=== PATIENT | female | born 1950 | race Caucasian/White ===

== ENCOUNTER 2023-07-20 14:05 | Observation (INO) ==
--- NOTE | 2023-07-20 15:19 | ED.PDOC ---
General ED Provider: Dr. LEANDRA DELATORRE MD Chief Complaint: Nausea/Vomiting Stated Complaint: nausea without vomiting Time Seen by Provider: 07/20/23 14:50 Mode of Arrival: Walk-In Information Source: Patient Exam Limitations: No limitations Primary Care Provider: ENEDELIA GROSSMAN MD Nursing and Triage Documentation Reviewed and Agree: Yes GI Complaint Exam Vomiting/Diarrhea Complaint/Exam Onset/Duration: ~4 days ago Symptoms Are: Still present Episodes of Vomiting over last 24 Hours: 0 Episodes of Diarrhea Over Last 24 Hours: 0 Initial Severity: Mild Current Severity: Moderate Aggravating: Reports None Alleviating: Reports None Associated Signs and Symptoms: Denies Dizziness, Light-headedness, Melena, Hematemesis, Fever, Abdominal pain or Cramping Related History: Denies Similar episode Last Oral Intake: ~1030 Recent Positive Test: No Use of Oral Contraceptives: No Use of Depoprovera: No Non-GI Risk Factors: Reports None Surgical Obstruction Risk Factors: Reports None Related Surgical History: Reports None Abdominal Findings: Present None Kussmaul Respirations Present: No Differential Diagnoses: Cholecystitis, Cholelithiasis, Dehydration, Gastritis, PUD, Viral Gastroenteritis, Bacterial Gastroenteritis, Hepatitis, Pancreatitis and UTI Review of Systems Review Of Systems Constitutional: Reports Malaise, Sweats and Other (myalgias) Respiratory: Reports Cough GI: Reports Nausea; Denies Diarrhea or Vomiting : Reports Burning and Dysuria All Other Systems: Reviewed and Negative [facility] Medical History Biceps muscle tear S46.219A - Strain of muscle, fascia and tendon of other parts of biceps, unspecified arm, initial encounter (ICD-10) Breast cancer C50.919 - Malignant neoplasm of unspecified site of unspecified female breast (ICD-10) Deep vein blood clot of left lower extremity I82.402 - Acute embolism and thrombosis of unspecified deep veins of left lower extremity (ICD-10) Rotator cuff arthropathy of right shoulder M12.811 - Other specific arthropathies, not elsewhere classified, right shoulder (ICD-10) Family History (Updated 07/20/23 @ 17:31 by MARCIN ROJAS, RN) SISTER Diabetes Social History (Updated 07/20/23 @ 17:31 by MARCIN ROJAS, RN) Smoking and tobacco status: Former smoker Tobacco: How many years used: 10 Alcohol intake: current Alcohol intake frequency: 0-2 drinks per day Alcohol type: wine Surgical History H/O lymph node excision Z98.890 - Other specified postprocedural states (ICD-10) H/O tubal ligation Z98.51 - Tubal ligation status (ICD-10) Physical Exam Physical Exam Appearance: Reports Ill-appearing and Well-nourished Ill-appearing: Moderate Pain Distress: None Eyes: Reports DESTINY, EOMI and Conjunctiva clear ENT: Reports Ears normal and Nose normal Neck: Nonsupple (normal age-appropriate external appearance) Respiratory: Reports Airway patent, Breath sounds clear, Breath sounds equal and Respirations nonlabored Cardiovascular: Reports RRR GI/: Reports Soft, Nontender and Bowel sounds normal Musculoskeletal: Reports Normal strength and ROM intact Skin: Reports Warm, Dry and Normal color Neurological: Reports Sensation intact, Motor intact, Cranial nerves intact, Alert and Oriented Psychiatric: Reports Affect appropriate and Mood appropriate Critical Care Note Critical Care Note Total Critical Care Time (mins): 0 Course Course 07/21/23 05:15 07/21/23 05:05 Orders, Labs, Meds: Lab Review 07/20/23 07/20/23 07/20/23 15:25 15:26 15:39 WBC 7.10 RBC 4.38 Hgb 13.2 Hct 40.2 MCV 91.8 MCH 30.1 MCHC 32.8 RDW Coeff of Jonathan 12.9 Plt Count 213 Immature Gran % (Auto) 0.3 Neut % (Auto) 80.3 H Lymph % (Auto) 10.3 Greene % (Auto) 8.7 Eos % (Auto) 0.0 Baso % (Auto) 0.4 Neut # (Auto) 5.7 Lymph # (Auto) 0.7 Greene # (Auto) 0.6 Eos # (Auto) 0.0 Baso # (Auto) 0.0 Immature Gran # (Auto) 0.0 Sodium 127.7 L Potassium 4.32 Chloride 91.9 L Carbon Dioxide 24.9 Anion Gap 15.22 BUN 7.6 Creatinine 0.65 Estimated GFR (MDRD) 90.00 BUN/Creatinine Ratio 11.69 Glucose 114.3 H Calcium 9.24 Total Bilirubin 1.03 AST 36.0 ALT 31.7 Alkaline Phosphatase 95.9 Total Protein 8.45 H Albumin 4.39 Globulin 4.06 Albumin/Globulin Ratio 1.08 Amylase 73.2 Lipase 56.6 Urine Color Urine Clarity Urine pH Ur Specific [place] Urine Protein Urine Glucose (UA) Urine Ketones Urine Blood Urine Nitrite Urine Bilirubin Urine Urobilinogen Ur Leukocyte Esterase Ur Squamous Epith Cells Influ A Molecular Assay Negative by naat Influ B Molecular Assay Negative by naat SARS CoV-2 RNA Rapid HUE Negative 07/20/23 16:01 WBC RBC Hgb Hct MCV MCH MCHC RDW Coeff of Jonathan Plt Count Immature Gran % (Auto) Neut % (Auto) Lymph % (Auto) Greene % (Auto) Eos % (Auto) Baso % (Auto) Neut # (Auto) Lymph # (Auto) Greene # (Auto) Eos # (Auto) Baso # (Auto) Immature Gran # (Auto) Sodium Potassium Chloride Carbon Dioxide Anion Gap BUN Creatinine Estimated GFR (MDRD) BUN/Creatinine Ratio Glucose Calcium Total Bilirubin AST ALT Alkaline Phosphatase Total Protein Albumin Globulin Albumin/Globulin Ratio Amylase Lipase Urine Color Yellow Urine Clarity Clear Urine pH 6.0 Ur Specific [place] 1.010 Urine Protein 1+ H Urine Glucose (UA) Negative Urine Ketones 2+ H Urine Blood Negative Urine Nitrite Negative Urine Bilirubin Negative Urine Urobilinogen 1.0 H Ur Leukocyte Esterase Negative Ur Squamous Epith Cells 5-10 Influ A Molecular Assay Influ B Molecular Assay SARS CoV-2 RNA Rapid HUE Orders Category Date Time Status ADMIT OBSERVATION [PLACE PATIENT OBSERVATION] .TO ADMISSION 07/20/23 16:52 Active MEDSURG (MONITORED BED) TELEMETRY MONITORING TELE CARE 07/20/23 16:52 Active AMYLASE Stat LAB 07/20/23 15:25 Completed CBC W/ AUTO DIFF Stat LAB 07/20/23 15:25 Completed CMP [COMPREHENSIVE METABOLIC PANEL] Stat LAB 07/20/23 15:25 Completed COVID [SARS COV-2 RNA RAPID HUE] Stat LAB 07/20/23 15:26 Completed FLU A & B MOLECULAR [FLU A/B MOLECULAR] Stat LAB 07/20/23 15:39 Completed LIPASE Stat LAB 07/20/23 15:25 Completed RAPID STREP SCREEN [MOLECULAR GROUP A STREP] Stat LAB 07/20/23 15:39 Completed UA [URINALYSIS C & S IF INDICATED] Stat LAB 07/20/23 16:01 Completed Medications Generic Name Dose Route Start Last Admin Trade Name Freq PRN Reason Stop Dose Admin Acetaminophen 650 mg 07/20/23 17:18 07/20/23 17:43 Acetaminophen 325 Mg Tablet PO 650 mg Q4H PRN Administration Mild Pain Guaifenesin/Dextromethorphan 5 ml 07/20/23 17:51 07/21/23 05:28 Guaifenesin/Dextromethorphan 200/20 Mg/10 Ml Cup PO 5 ml Q4H PRN Administration Cough Sodium Chloride 1,000 mls @ 100 mls/hr 07/20/23 17:30 07/21/23 04:54 Sodium Chloride IV 100 mls/hr .Q10H [facility]ICK Administration Levofloxacin/Dextrose 750 mg in 150 mls @ 100 mls/hr 07/21/23 21:00 Levaquin 750 Mg/150 Ml D5w IV 07/23/23 18:59 BEDTIME CH[place]ICK Ibuprofen 600 mg 07/20/23 18:56 Ibuprofen 600 Mg Tablet PO Q6H PRN FEVER/PAIN Ondansetron HCl 4 mg 07/20/23 17:18 Ondansetron Hcl 4 Mg Tab.Rapdis PO Q8H PRN Nausea / Vomiting Discontinued Medications Generic Name Dose Route Start Last Admin Trade Name Freq PRN Reason Stop Dose Admin Levofloxacin/Dextrose 750 mg in 150 mls @ 100 mls/hr 07/20/23 19:00 07/20/23 19:41 Levaquin 750 Mg/150 Ml D5w IV 07/23/23 18:59 100 mls/hr DAILY CHADWICK Administration Vital Signs: Temp Pulse Resp BP Pulse Ox 07/20/23 14:22 99.3 F 92 20 123/61 94 L Patient presents with ~4 day h/o nausea without vomiting. Labs/swabs on arrival. When posted, labs were significant only for hyponatremia. Flu/Strep/CoVid were all negative. I spoke with the Hospitalist [employer] MANAGER [employer]ING[employer], Car Puckett, who accepted. She was in good condition when transported to the medical floor. Discharge Plan Discharge Patient Disposition: PLACED OBSERVATION Discharge Problem: Nausea without vomiting, Acute hyponatremia Did you review [place] DIGITIZER OPERATOR for ALL controlled substances?: Not Applicable ED Provider: LEANDRA DELATORRE Condition: Stable Physician Progress Note: []
[2023-07-20 15:39] LABS: BASOPHILS % (AUTO) 0.4 % (0.0-3.0); HEMATOCRIT 40.2 % (37.0-47.0); HEMOGLOBIN 13.2 g/dl (12.0-16.0); IMMATURE GRANULOCYTE % (AUTO) 0.3 % (0.0-5.0); LYMPHOCYTES # (AUTO) 0.7 K/uL (0.60-3.4); LYMPHOCYTES % (AUTO) 10.3 (10.0-50.0); MEAN CORPUSCULAR HEMOGLOBIN 30.1 pg (27.0-31.0); MEAN CORPUSCULAR HGB CONC 32.8 (31.8-35.4); MEAN CORPUSCULAR VOLUME 91.8 fl (81.0-99.0); MONOCYTES # (AUTO) 0.6 K/uL (0.4-2.0); MONOCYTES % (AUTO) 8.7 (0-10); NEUTROPHILS # (AUTO) 5.7 K/ul (2.0-6.9); NEUTROPHILS % (AUTO) 80.3 % (42.2-75.2); PLATELET COUNT 213 10^3/uL (140-440); RDW COEFFICIENT OF VARIATION 12.9 % (11.6-14.8); RED BLOOD COUNT 4.38 10^6/ul (4.20-5.40)
[2023-07-20 15:50] LABS: ALANINE AMINOTRANSFERASE 31.7 U/L (0-35); ALBUMIN 4.39 g/dL (3.5-5.0); ALKALINE PHOSPHATASE 95.9 U/L (53-141); AMYLASE 73.2 U/L (30-110); BILIRUBIN,TOTAL 1.03 mg/dL (0.2-1.3); BLOOD UREA NITROGEN 7.6 mg/dL (7-17); CALCIUM 9.24 mg/dL (8.4-10.2); CARBON DIOXIDE 24.9 mmol/L (22-30.0); CHLORIDE 91.9 mmol/L (98-107); CREATININE 0.65 mg/dL (0.60-1.30); GLUCOSE 114.3 mg/dL (74-106); LIPASE 56.6 U/L (23-300); POTASSIUM 4.32 mmol/L (3.5-5.1); SODIUM 127.7 mmol/L (134.5-145); TOTAL PROTEIN 8.45 g/dL (6.3-8.2)
[2023-07-20 15:58] LABS: SARS COV-2 RNA RAPID NAAT NEGATIVE (NEGATIVE)
[2023-07-20 16:00] LABS: MOLECULAR FLU A NEGATIVE BY NAAT (NEGATIVE); MOLECULAR FLU B NEGATIVE BY NAAT (NEGATIVE)
[2023-07-20 16:20] LABS: BILIRUBIN,URINE Negative (NEGATIVE); CLARITY,URINE Clear (CLEAR); COLOR,URINE Yellow (YELLOW); GLUCOSE, URINE (UA) Negative (NEGATIVE); KETONES,URINE 2+ (NEGATIVE); LEUKOCYTE ESTERASE ,URINE Negative (NEGATIVE); NITRITE,URINE Negative (NEGATIVE); PROTEIN,URINE 1+ (NEGATIVE); URINE, BLOOD Negative (NEGATIVE)
[2023-07-20] MEDS ORDERED: ZOFRAN ODT PO PRN (17:18)
[2023-07-20] MEDS ORDERED: TYLENOL PO PRN (17:18)
[2023-07-20] MEDS: SODIUM CHLORIDE 1,000 ML IV SCH (17:35)
[2023-07-20 17:52] VITALS: BMI 22.8
[2023-07-20] MEDS: ROBITUSSIN DM SYRUP PO PRN (18:22)
--- NOTE | 2023-07-20 18:33 | DI ---
EXAM: PA AND LATERAL VIEWS OF THE CHEST HISTORY: Cough. Abnormal lung sounds. COMPARISON: Chest radiographs dated 01/02/2017. FINDINGS: There is consolidation in the right middle lobe consistent with pneumonia. There is no large pleural effusion. There is hyperinflation of the lungs, which could be seen in COPD. The trachea is midline. The cardiomediastinal silhouette is within the normal limits. The osseous structures are intact. IMPRESSIONS: 1. Right middle lobe pneumonia. 2. COPD changes.
[2023-07-20] MEDS ORDERED: MOTRIN PO PRN (18:56)
[2023-07-20] MEDS ORDERED: LEVAQUIN 750 MG/150 ML D5W 750 MG/150 ML BAG IV SCH (19:00)
[2023-07-21] MEDS: ROBITUSSIN DM SYRUP PO PRN ×2 (00:01→05:28)
[2023-07-21] MEDS: SODIUM CHLORIDE 1,000 ML IV SCH ×2 (04:54→15:20)
[2023-07-21 05:35] LABS: BASOPHILS % (AUTO) 0.4 % (0.0-3.0); EOSINOPHILS % (AUTO) 0.4 % (0.0-7.0); HEMATOCRIT 36.1 % (37.0-47.0); HEMOGLOBIN 11.7 g/dl (12.0-16.0); IMMATURE GRANULOCYTE % (AUTO) 0.4 % (0.0-5.0); LYMPHOCYTES # (AUTO) 0.8 K/uL (0.60-3.4); LYMPHOCYTES % (AUTO) 11.2 (10.0-50.0); MEAN CORPUSCULAR HEMOGLOBIN 30.3 pg (27.0-31.0); MEAN CORPUSCULAR HGB CONC 32.4 (31.8-35.4); MEAN CORPUSCULAR VOLUME 93.5 fl (81.0-99.0); NEUTROPHILS # (AUTO) 5.2 K/ul (2.0-6.9); NEUTROPHILS % (AUTO) 73.6 % (42.2-75.2); PLATELET COUNT 168 10^3/uL (140-440); RDW COEFFICIENT OF VARIATION 13.1 % (11.6-14.8); RED BLOOD COUNT 3.86 10^6/ul (4.20-5.40); WHITE BLOOD COUNT 7.08 K/ul (4.6-10.2)
[2023-07-21 05:58] LABS: ALANINE AMINOTRANSFERASE 26.7 U/L (0-35); ALBUMIN 3.3 g/dL (3.5-5.0); ALKALINE PHOSPHATASE 72.2 U/L (53-141); BILIRUBIN,TOTAL 0.87 mg/dL (0.2-1.3); BLOOD UREA NITROGEN 6.2 mg/dL (7-17); CALCIUM 8.29 mg/dL (8.4-10.2); CARBON DIOXIDE 24.5 mmol/L (22-30.0); CHLORIDE 101.5 mmol/L (98-107); CREATININE 0.51 mg/dL (0.60-1.30); POTASSIUM 4.86 mmol/L (3.5-5.1); SODIUM 130.7 mmol/L (134.5-145); TOTAL PROTEIN 6.62 g/dL (6.3-8.2)
--- NOTE | 2023-07-21 10:18 | PCM ---
Date of Service Date Seen by Provider: 07/21/23 Time Seen by Provider: 09:00 Admit Day/Time Admission Date: 07/20/23 Admission Time: 16:52 Reason for Admission Chief Complaint: HYPONATREMIA Hospital Provider Hospital Provider: Savannah Borrero PA-C, [facility] – [place], [place] Primary Care Physician Primary Care Physician: ENEDELIA GROSSMAN MD History of Present Illness History of Present Illness: Patient is a 72 year old female with pmhx of breast cancer s/p chemo/radiation with lymph node dissection and dvt who presented to ER with nausea, fever, cough, body aches since Friday of last week. She also has been having some intermittent chest pain/burning across her chest. She states she had right sided chest discomfort last night as well but it is improved today. She states last week she was riding her horse and felt fine but once she got home it all hit her at once. She's had a decreased appetite due to the nausea. No vomiting or diarrhea however. In the ER, basic labs done showed low sodium of 127, which is new compared to her labs last month. She was negative for flu and covid. Once on the floor she was noted to have a fever and cough, CXR was ordered showing RML pneumonia. Abx started. Patient feeling better today. Sodium improved. Otherwise healthy female, takes no medications. Case Discussed With Case Discussed With: Patient's case was discussed with the ER Physicians, Dr. Patrick. [facility] Medical History Biceps muscle tear S46.219A - Strain of muscle, fascia and tendon of other parts of biceps, unspecified arm, initial encounter (ICD-10) Breast cancer C50.919 - Malignant neoplasm of unspecified site of unspecified female breast (ICD-10) Deep vein blood clot of left lower extremity I82.402 - Acute embolism and thrombosis of unspecified deep veins of left lower extremity (ICD-10) Rotator cuff arthropathy of right shoulder M12.811 - Other specific arthropathies, not elsewhere classified, right shoulder (ICD-10) Surgical History H/O lymph node excision Z98.890 - Other specified postprocedural states (ICD-10) H/O tubal ligation Z98.51 - Tubal ligation status (ICD-10) Family History SISTER Diabetes Social History Smoking and tobacco status: Former smoker Tobacco: How many years used: 10 Alcohol intake: current Alcohol intake frequency: 0-2 drinks per day Alcohol type: wine Allergies Allergies Allergy/AdvReac Type Severity Reaction Status Date / Time No Known Allergies Allergy Verified 07/20/23 14:17 Current Medications Home Medications 1 [No Reported Medications] 07/20/23 [History Confirmed 07/20/23 Last Taken Unknown] Home Acetaminophen (Acetaminophen 325 Mg Tablet) 650 mg PO Q4H PRN PRN Reason: Mild Pain Last Admin: 07/20/23 17:43 Dose: 650 mg Al Hydroxide/Mg Hydroxide (Mag Hydrox/Al Hydrox/Simeth 30 Ml Cup) 30 ml PO DAILY PRN PRN Reason: Heartburn Benzocaine/Menthol (Benzocaine/Menth/Cetylpyrd Cl 1 Lozenge) 1 lozenge [id number] PRN PRN PRN Reason: SORE THROAT Famotidine (Famotidine Inj 20 Mg/2 Ml Vial) 20 mg IVP Q12HR CHADWICK Last Admin: 07/21/23 10:37 Dose: 20 mg Guaifenesin/Dextromethorphan (Guaifenesin/Dextromethorphan 200/20 Mg/10 Ml Cup) 5 ml PO Q4H PRN PRN Reason: Cough Last Admin: 07/21/23 05:28 Dose: 5 ml Sodium Chloride (Sodium Chloride) 1,000 mls @ 100 mls/hr IV .Q10H [facility]ICK Last Admin: 07/21/23 04:54 Dose: 100 mls/hr Levofloxacin/Dextrose (Levaquin 750 Mg/150 Ml D5w) 750 mg in 150 mls @ 100 mls/hr IV BEDTIME CHADWICK Stop: 07/23/23 18:59 Ibuprofen (Ibuprofen 600 Mg Tablet) 600 mg PO Q6H PRN PRN Reason: FEVER/PAIN Ondansetron HCl (Ondansetron Hcl 4 Mg Tab.Rapdis) 4 mg PO Q8H PRN PRN Reason: Nausea / Vomiting Pantoprazole Sodium (Pantoprazole Sodium 40 Mg Vial) 40 mg IVP DAILY [facility] Last Admin: 07/21/23 10:36 Dose: 40 mg Discontinued Medications Levofloxacin/Dextrose (Levaquin 750 Mg/150 Ml D5w) 750 mg in 150 mls @ 100 mls/hr IV DAILY [facility] Stop: 07/23/23 18:59 Last Admin: 07/20/23 19:41 Dose: 100 mls/hr Review of Systems Constitutional: Reports Fever, Fatigue, Chills, Weakness and Loss of appetite Head: Reports Normocephalic and Atraumatic Throat: Denies Sore Throat or Difficulty Swallowing Cardiovascular: Reports Chest pain; Denies Edema Respiratory: Reports Cough and Shortness of air Gastrointestinal: Reports Nausea; Denies Vomiting, Diarrhea or Abdominal pain Genitourinary: Denies Dysuria, Frequency or Nocturia Dermatologic: Denies Rashes Neurological: Reports Weakness; Denies Headache, Syncope or Numbness Physical examination Most Recent Vital Signs: Most Recent Vital Signs Temperature 98.3 F 07/21/23 10:00 Temperature Source Oral 07/21/23 10:00 Temperature Source Oral 07/20/23 14:22 Pulse Rate 79 07/21/23 10:00 Respiratory Rate 17 07/21/23 10:00 Blood Pressure 114/62 07/21/23 10:00 Blood Pressure Mean 79 07/21/23 10:00 Blood Pressure Right Arm 133/73 07/20/23 17:21 Blood Pressure Location Right Arm 07/21/23 10:00 Blood Pressure Position Supine 07/21/23 10:00 O2 Sat by Pulse Oximetry 97 07/21/23 10:00 Oxygen Delivery Method Room Air 07/21/23 10:00 Height 5 ft 6 in 07/20/23 17:21 Weight 141 lb 9 oz 07/20/23 17:21 Telemetry Type Remote Telemetry 07/21/23 07:00 Telemetry Monitoring Continues 07/21/23 07:00 Telemetry Heart Rate 87 07/21/23 07:00 EKG NC Interval 0.13 07/21/23 07:00 EKG QRS Interval 0.08 07/21/23 07:00 Telemetry Strip Reading NSR 07/21/23 07:00 Appearance: Positive Well-appearing, Well-nourished, No Apparent Distress and Alert and Oriented x3 Skin: Positive [place], Warm and Good Turgor; Negative Rashes HEENT: Positive Normocephalic and Atraumatic Neck: Positive Supple and Midline Trachea Chest/Lungs: Positive Symmetrical With Equal Breath Sounds and Rhonci; Negative Rales or Wheezes Heart: Positive RRR; Negative Murmur GI/: Positive Soft, Nontender and Bowel Sounds Normal Extremities: Positive Intact Peripheral Pulses; Negative Edema Neurological: Positive Cranial Nerves Intact, Alert, Oriented and Muscle Strength 5/5 in Upper and Lower Extremities Bilaterally Psychiatric: Positive Oriented x4, Appropriate Mood and Appropriate Affect Labs This Visit Labs This Visit: Labs This Visit 07/20/23 07/20/23 07/20/23 15:25 15:26 15:39 WBC 7.10 RBC 4.38 Hgb 13.2 Hct 40.2 MCV 91.8 MCH 30.1 MCHC 32.8 RDW Coeff of Jonathan 12.9 Plt Count 213 Immature Gran % (Auto) 0.3 Neut % (Auto) 80.3 H Lymph % (Auto) 10.3 Robertson % (Auto) 8.7 Eos % (Auto) 0.0 Baso % (Auto) 0.4 Neut # (Auto) 5.7 Lymph # (Auto) 0.7 Robertson # (Auto) 0.6 Eos # (Auto) 0.0 Baso # (Auto) 0.0 Immature Gran # (Auto) 0.0 Sodium 127.7 L Potassium 4.32 Chloride 91.9 L Carbon Dioxide 24.9 Anion Gap 15.22 BUN 7.6 Creatinine 0.65 Estimated GFR (MDRD) 90.00 BUN/Creatinine Ratio 11.69 Glucose 114.3 H Calcium 9.24 Total Bilirubin 1.03 AST 36.0 ALT 31.7 Alkaline Phosphatase 95.9 Total Protein 8.45 H Albumin 4.39 Globulin 4.06 Albumin/Globulin Ratio 1.08 Amylase 73.2 Lipase 56.6 Procalcitonin Urine Color Urine Clarity Urine pH Ur Specific [place] Urine Protein Urine Glucose (UA) Urine Ketones Urine Blood Urine Nitrite Urine Bilirubin Urine Urobilinogen Ur Leukocyte Esterase Ur Squamous Epith Cells Influ A Molecular Assay Negative by naat Influ B Molecular Assay Negative by naat SARS CoV-2 RNA Rapid HUE Negative 07/20/23 07/20/23 07/21/23 16:01 Unknown 05:05 WBC RBC Hgb Hct MCV MCH MCHC RDW Coeff of Jonathan Plt Count Immature Gran % (Auto) Neut % (Auto) Lymph % (Auto) Robertson % (Auto) Eos % (Auto) Baso % (Auto) Neut # (Auto) Lymph # (Auto) Robertson # (Auto) Eos # (Auto) Baso # (Auto) Immature Gran # (Auto) Sodium 130.7 L Potassium 4.86 Chloride 101.5 Carbon Dioxide 24.5 Anion Gap 9.56 BUN 6.2 L Creatinine 0.51 L Estimated GFR (MDRD) 119.00 BUN/Creatinine Ratio 12.15 Glucose 110.0 H Calcium 8.29 L Total Bilirubin 0.87 AST 35.0 ALT 26.7 Alkaline Phosphatase 72.2 Total Protein 6.62 Albumin 3.30 L Globulin 3.32 Albumin/Globulin Ratio 0.99 Amylase Lipase Procalcitonin 0.30 H Urine Color Yellow Urine Clarity Clear Urine pH 6.0 Ur Specific Pur[place] 1.010 Urine Protein 1+ H Urine Glucose (UA) Negative Urine Ketones 2+ H Urine Blood Negative Urine Nitrite Negative Urine Bilirubin Negative Urine Urobilinogen 1.0 H Ur Leukocyte Esterase Negative Ur Squamous Epith Cells 5-10 Influ A Molecular Assay Influ B Molecular Assay SARS CoV-2 RNA Rapid HUE 07/21/23 05:15 WBC 7.08 RBC 3.86 L Hgb 11.7 L Hct 36.1 L MCV 93.5 MCH 30.3 MCHC 32.4 RDW Coeff of Jonathan 13.1 Plt Count 168 Immature Gran % (Auto) 0.4 Neut % (Auto) 73.6 Lymph % (Auto) 11.2 Robertson % (Auto) 14.0 H Eos % (Auto) 0.4 Baso % (Auto) 0.4 Neut # (Auto) 5.2 Lymph # (Auto) 0.8 Robertson # (Auto) 1.0 Eos # (Auto) 0.0 Baso # (Auto) 0.0 Immature Gran # (Auto) 0.0 Sodium Potassium Chloride Carbon Dioxide Anion Gap BUN Creatinine Estimated GFR (MDRD) BUN/Creatinine Ratio Glucose Calcium Total Bilirubin AST ALT Alkaline Phosphatase Total Protein Albumin Globulin Albumin/Globulin Ratio Amylase Lipase Procalcitonin Urine Color Urine Clarity Urine pH Ur Specific Purlear Urine Protein Urine Glucose (UA) Urine Ketones Urine Blood Urine Nitrite Urine Bilirubin Urine Urobilinogen Ur Leukocyte Esterase Ur Squamous Epith Cells Influ A Molecular Assay Influ B Molecular Assay SARS CoV-2 RNA Rapid HUE Microbiology This Visit 09/03/23 15:39 Throat Group A Strep Molecular Assay - Final Imaging Imaging: EXAM: PA AND LATERAL VIEWS OF THE CHEST HISTORY: Cough. Abnormal lung sounds. COMPARISON: Chest radiographs dated 01/02/2017. FINDINGS: There is consolidation in the right middle lobe consistent with pneumonia. There is no large pleural effusion. There is hyperinflation of the lungs, which could be seen in COPD. The trachea is midline. The cardiomediastinal silhouette is within the normal limits. The osseous structures are intact. IMPRESSIONS: 1. Right middle lobe pneumonia. 2. COPD changes. Review Statement Review Statement: I have independently reviewed and interpreted the labs/EKGs/imaging that were ordered by the ER provider. I have reviewed all outside records that are available currently in our EMR including imaging/notes/labs from previous visits. Plan Plan: 1. Symptomatic hyponatremia - Improving. 127 initially, 130 today. Continue NS at 100 ml/hr. Osmolality studies sent. 2. CAP, right - Levaquin ordered. On RA. Viral panel ordered. Trend procal. Tylenol prn for fever. CXR showing COPD changes. Could benefit from outpatient PFT. 3. Chest pain - tele. EKG and trop ordered. Pepcid and protonix ordered. Di scussed with her it could be pleurisy type pain as well but will r/o acs. DVT Prophylaxis: Lovenox Time Spent: Greater than 80 minutes spent with patient, 50% of the time spent with this patient was devoted to counseling and coordination of care. [facility] minutes spent discussing advance care planning. DNR Admit to: Obs Discussed Plan of Care with Dr. Liban Amos. Medications Medication Orders: Medications Ordered Category Date Time Status Acetaminophen [Tylenol] Meds 07/20/23 17:18 Active 650 mg PO Q4H PRN Guaifenesin/Dextromethorphan [Robitussin Dm Syrup] Meds 07/20/23 17:51 Active 5 ml PO Q4H PRN Ibuprofen [Motrin] Meds 07/20/23 18:56 Active 600 mg PO Q6H PRN Levofloxacin/D5w [Levaquin 750 mg/150 ml D5w] Meds 07/21/23 21:00 Active 750 mg in 150 ml IV BEDTIME Ondansetron [Zofran Odt] Meds 07/20/23 17:18 Active 4 mg PO Q8H PRN Sodium Chloride 0.9% [Sodium Chloride] 1,000 ml Meds 07/20/23 17:30 Active IV 100 mls/hr
[2023-07-21] MEDS ORDERED: MYLANTA SUSP PO PRN (10:24)
[2023-07-21] MEDS: PROTONIX IV IVP SCH (10:36)
[2023-07-21] MEDS: PEPCID IVP SCH ×2 (10:37→20:31)
[2023-07-21] MEDS: CEPACOL SORE THROAT LOZENGE MUCOUSMEMB PRN ×2 (15:20→19:26)
[2023-07-21] MEDS: LOVENOX SUBCUT SCH (15:20)
[2023-07-21] MEDS ORDERED: LEVAQUIN 750 MG/150 ML D5W 750 MG/150 ML BAG IV SCH (21:00)
[2023-07-22] MEDS: CEPACOL SORE THROAT LOZENGE MUCOUSMEMB PRN ×2 (00:21→05:27)
[2023-07-22] MEDS: SODIUM CHLORIDE 1,000 ML IV SCH (02:19)
[2023-07-22 05:26] VITALS: BP 119/67; PULSE 72; RESP 16; TEMP 97.9
[2023-07-22 05:30] LABS: BASOPHILS % (AUTO) 0.3 % (0.0-3.0); EOSINOPHILS % (AUTO) 0.6 % (0.0-7.0); HEMATOCRIT 37.2 % (37.0-47.0); IMMATURE GRANULOCYTE # (AUTO) 0.1 (0.0-1.0); IMMATURE GRANULOCYTE % (AUTO) 0.9 % (0.0-5.0); LYMPHOCYTES % (AUTO) 15.7 (10.0-50.0); MEAN CORPUSCULAR HEMOGLOBIN 29.6 pg (27.0-31.0); MEAN CORPUSCULAR HGB CONC 32.3 (31.8-35.4); MEAN CORPUSCULAR VOLUME 91.6 fl (81.0-99.0); MONOCYTES # (AUTO) 0.9 K/uL (0.4-2.0); MONOCYTES % (AUTO) 13.1 (0-10); NEUTROPHILS # (AUTO) 4.6 K/ul (2.0-6.9); NEUTROPHILS % (AUTO) 69.4 % (42.2-75.2); PLATELET COUNT 238 10^3/uL (140-440); RDW COEFFICIENT OF VARIATION 13.1 % (11.6-14.8); RED BLOOD COUNT 4.06 10^6/ul (4.20-5.40); WHITE BLOOD COUNT 6.62 K/ul (4.6-10.2)
[2023-07-22 05:50] LABS: ALANINE AMINOTRANSFERASE 34.3 U/L (0-35); ALBUMIN 3.08 g/dL (3.5-5.0); BILIRUBIN,TOTAL 0.41 mg/dL (0.2-1.3); BLOOD UREA NITROGEN 4.4 mg/dL (7-17); CALCIUM 8.3 mg/dL (8.4-10.2); CARBON DIOXIDE 24.6 mmol/L (22-30.0); CHLORIDE 105.7 mmol/L (98-107); CREATININE 0.5 mg/dL (0.60-1.30); GLUCOSE 111.7 mg/dL (74-106); POTASSIUM 3.89 mmol/L (3.5-5.1); TOTAL PROTEIN 6.3 g/dL (6.3-8.2)
[2023-07-22] MEDS: LOVENOX SUBCUT SCH (08:18)
[2023-07-22] MEDS: PEPCID IVP SCH (08:21)
[2023-07-22] MEDS: PROTONIX IV IVP SCH (08:21)
[2023-07-22] MEDS ORDERED: LEVAQUIN PO ONE (09:24)
--- NOTE | 2023-07-22 09:34 | DCSUM ---
Admission Date Admission Date: 07/20/23 Discharge Date Discharge Date: 07/22/23 Admission Diagnosis Admission Diagnosis: 1. Acute symptomatic hyponatremia 2. Community acquired pneumonia Discharge Diagnosis Discharge Diagnosis: 1. Acute symptomatic hyponatremia, resolved 2. Community acquired pneumonia, right Hospital Provider Hospital Provider: Savannah Borrero PA-C, [facility] Primary Care Physician Primary Care Physician: ENEDELIA GROSSMAN MD Summary of History and Physical Summary of History and Physical: Patient is a 72 year old female with pmhx of breast cancer s/p chemo/radiation with lymph node dissection and dvt who presented to ER with nausea, fever, cough, body aches since Friday of last week. She also has been having some intermittent chest pain/burning across her chest. She states she had right sided chest discomfort last night as well but it is improved today. She states last week she was riding her horse and felt fine but once she got home it all hit her at once. She's had a decreased appetite due to the nausea. No vomiting or diarrhea however. In the ER, basic labs done showed low sodium of 127, which is new compared to her labs last month. She was negative for flu and covid. Once on the floor, CXR was ordered showing RML pneumonia. Abx started. Patient feeling better today. Sodium improved. Otherwise healthy female, takes no medications. Hospital Course Subjective: Patient's trop and EKG negative. Her chest discomfort improved. Patient was treated with levaquin and normal saline. Sodium normalized. Patient remained on RA. She is feeling better and is comfortable with discharge to home. She mentions her left axillary area has been painful for the past few days. No specific lymphadenopathy noted, no cellulitis. Advised her to f/u with pcp if it continues to be bothersome. She mentions she may have had some ticks on her this summer. She states she hasn't actually removed any attached ticks or had any actual known tick bites recently. No rashes, no specific joint pain or swelling. We discussed her current symptoms do relate to her pneumonia, but if she continues to have fever or develop any previously mentioned symptoms to certainly f/u with pcp for further evaluation. Patient agrees to plan of care. Will discharge on remainder of levaquin. Of note, CXR mentions COPD changes. Consider outpatient PFT. Appearance: Pleasant, No Apparent Distress, Alert and Well-appearing HEENT: MMM CVS: No Murmur Abdomen: Soft, Non-Tender and No Distention Respiratory: No Dyspnea Extremities: No Edema Additional Findings: No rashes. Vital Signs: Most Recent Vital Signs Temperature 97.9 F 07/22/23 05:18 Temperature Source Oral 07/22/23 05:18 Temperature Source Oral 07/20/23 14:22 Pulse Rate 72 07/22/23 05:18 Respiratory Rate 16 07/22/23 05:18 Blood Pressure 119/67 07/22/23 05:18 Blood Pressure Mean 84 07/22/23 05:18 Blood Pressure Right Arm 133/73 07/20/23 17:21 Blood Pressure Location Right Arm 07/22/23 05:18 Blood Pressure Position Supine 07/22/23 05:18 O2 Sat by Pulse Oximetry 95 07/22/23 05:18 Oxygen Delivery Method Room Air 07/22/23 08:00 Height 5 ft 6 in 07/20/23 17:21 Weight 141 lb 9 oz 07/20/23 17:21 Telemetry Type Remote Telemetry 07/22/23 07:00 Telemetry Monitoring Continues 07/22/23 07:00 Telemetry Heart Rate 74 07/22/23 07:00 EKG CA Interval 0.12 07/22/23 07:00 EKG QRS Interval 0.09 07/22/23 07:00 EKG QT Interval 0.33 07/22/23 01:00 Telemetry Strip Reading 7 Beat run of V-Tach at 0426 this am. 07/22/23 07:00 Imaging: EXAM: PA AND LATERAL VIEWS OF THE CHEST HISTORY: Cough. Abnormal lung sounds. COMPARISON: Chest radiographs dated 01/02/2017. FINDINGS: There is consolidation in the right middle lobe consistent with pneumonia. There is no large pleural effusion. There is hyperinflation of the lungs, which could be seen in COPD. The trachea is midline. The cardiomediastinal silhouette is within the normal limits. The osseous structures are intact. IMPRESSIONS: 1. Right middle lobe pneumonia. 2. COPD changes. Lab Results Last 24 Hours: 07/22/23 07/21/23 05:13 10:38 WBC 6.62 RBC 4.06 L Hgb 12.0 Hct 37.2 MCV 91.6 MCH 29.6 MCHC 32.3 RDW Coeff of Jonathan 13.1 Plt Count 238 D Immature Gran % (Auto) 0.9 Neut % (Auto) 69.4 Lymph % (Auto) 15.7 [place] % (Auto) 13.1 H Eos % (Auto) 0.6 Baso % (Auto) 0.3 Neut # (Auto) 4.6 Lymph # (Auto) 1.0 [place] # (Auto) 0.9 Eos # (Auto) 0.0 Baso # (Auto) 0.0 Immature Gran # (Auto) 0.1 Sodium 136.0 Potassium 3.89 Chloride 105.7 Carbon Dioxide 24.6 Anion Gap 9.59 BUN 4.4 L Creatinine 0.50 L Estimated GFR (MDRD) 122.00 BUN/Creatinine Ratio 8.80 Glucose 111.7 H Calcium 8.30 L Magnesium 2.00 Total Bilirubin 0.41 AST 37.0 H ALT 34.3 Alkaline Phosphatase 87.0 Troponin I < 0.012 Total Protein 6.30 Albumin 3.08 L Globulin 3.22 Albumin/Globulin Ratio 0.95 Procalcitonin 0.60 H Discharge Instructions Discharge Planning: Discharge Planning > [address] Jordi Amos. Discharge Medications: Medications at Discharge (Home Meds & RX) levofloxacin 750 mg tablet 750 mg PO DAILY PNEUMONIA 4 days #4 tabs 07/22/23 Discharge Plan Discharge Discharge Orders: Discharge Patient (ONCE); Ordered 07/22/23 Ordered By: SAVANNAH BORRERO Activity Restrictions/Additional Instructions: DISCHARGE TO HOME DX: COMMUNITY ACQUIRED PNEUMONIA PRESCRIPTIONS: VINCENT DRUG ACTIVITY: TOLERATED DIET: NORMAL YOU HAVE A HOSPITAL FOLLOW UP APPOINTMENT WITH ALIX MENDOZA NP, ON FRIDAY, AT 9:15AM. SHOULD YOU HAVE ANY QUESTIONS OR NEED TO RESCHEDULE YOU CAN CONTACT THEIR OFFICE AT . Instructions: Levofloxacin (By mouth), Community Acquired Pneumonia (DC) Care Plan Goals: Problem: Impaired Respiratory Status Goal: Exhibit optimal respiratory function Instructions: Activities as tolerated Apply oxygen as ordered Elevate head of bed Notify MD of increased congestion Patient Disposition: HOME SELF-CARE Prescriptions: New levofloxacin 750 mg tablet 750 mg PO DAILY 4 Days Qty: 4 0RF Rx Instructions: STARTING 07/23/23 Did you review [place] [employer] for ALL controlled substances?: Not Applicable Discussed opioids are addictive and Narcan is available by prescription or from pharmacy.: No Condition: Stable
[2023-07-23 07:19] LABS: OSMOLALITY,URINE 466 mOsmol/kg (.)
[2023-07-23 11:32] LABS: SERUM OSMOLALITY 261 mOsmol/kg (280-301)
== END 2023-07-22 12:00 | disposition home or self-care (01) ==
LOC: MEDSURG B 14:05 → ED 14:05 → MEDSURG B 17:17
PROVIDERS: ADMIT Hospitalist; ATTEND Physician Assistant